=== PATIENT | male | born 1995 | race American Indian/Alaskan Native ===

== ENCOUNTER 2019-06-18 00:32 | Emergency (ER) | payer BC ==
[2019-06-18 00:55] VITALS: BP 138/70
[2019-06-18] MEDS ORDERED: XANAX PO ONE (02:33)
--- NOTE | 2019-06-18 03:03 | Emergency Department Report ---
ED General Adult HPI - General Chief complaint: Dyspnea/Respdistress Stated complaint: LAURA Time Seen by Provider: 06/18/19 01:59 Source: patient, family Mode of arrival: Ambulatory Limitations: No Limitations - History of Present Illness Initial comments: Patient is a 23-year-old -[place] male who presents for shortness of breath 2 months worse with stress follow presents with patient states history of anxiety patient denies SI or HI is no fever no chills no cough no nausea vomiting patient does state shortness of breath exacerbates his chest pain radiates to back presents history of same one year ago denies stressor. Onset/Timin -: month(s) Location: chest Radiation: back Severity scale (0 -10): 4 Quality: sharp Consistency: constant Improves with: none Worsens with: other (stress ) Associated Symptoms: chest pain, shortness of breath Treatments Prior to Arrival: none - Related Data Previous Rx's Medication Instructions Recorded Last Taken Type hydrOXYzine PAMOATE [Vistaril] 25 mg PO Q8H PRN #9 capsule 06/18/19 Unknown Rx ED Review of Systems ROS: Stated complaint: LAURA Other details as noted in HPI Constitutional: denies: chills, fever Eyes: denies: eye pain, eye discharge, vision change ENT: denies: ear pain, throat pain, congestion Respiratory: shortness of breath. denies: cough, wheezing Cardiovascular: chest pain. denies: palpitations, edema, syncope Endocrine: no symptoms reported Gastrointestinal: denies: abdominal pain, nausea, vomiting, diarrhea Genitourinary: denies: urgency, dysuria Musculoskeletal: back pain. denies: joint swelling, arthralgia Skin: denies: rash, lesions Neurological: denies: headache, weakness, numbness, paresthesias, confusion, abnormal gait, vertigo Psychiatric: denies: anxiety, depression Hematological/Lymphatic: denies: easy bleeding, easy bruising ED Past Medical Hx - Past Medical History Previous Medical History?: No Additional medical history: Pneumonia - Surgical History Past Surgical History?: Yes Hx Appendectomy: Yes - Social History Smoking Status: Never Smoker Substance Use Type: None - Medications Home Medications: Home Medications Medication Instructions Recorded Confirmed Last Taken Type hydrOXYzine PAMOATE [Vistaril] 25 mg PO Q8H PRN #9 capsule 06/18/19 Unknown Rx ED Physical Exam - General Limitations: No Limitations General appearance: alert, in no apparent distress - Head Head exam: Present: atraumatic, normocephalic - Eye Eye exam: Present: normal appearance, PERRL, EOMI Pupils: Present: normal accommodation - ENT ENT exam: Present: normal orophraynx, mucous membranes moist, TM's normal bilaterally, normal external ear exam - Neck Neck exam: Present: normal inspection, full ROM. Absent: tenderness, lymphadenopathy, thyromegaly - Respiratory Respiratory exam: Present: normal lung sounds bilaterally. Absent: respiratory distress, wheezes, stridor, chest wall tenderness, accessory muscle use, decreased breath sounds, prolonged expiratory - Cardiovascular Cardiovascular Exam: Present: regular rate, normal rhythm, normal heart sounds. Absent: systolic murmur, diastolic murmur, rubs, gallop - GI/Abdominal GI/Abdominal exam: Present: soft, normal bowel sounds. Absent: distended, tenderness, guarding, rebound, rigid, bruit, hernia - Rectal Rectal exam: Present: deferred - Extremities Exam Extremities exam: Present: normal inspection, full ROM. Absent: tenderness, normal capillary refill - Back Exam Back exam: Present: normal inspection, full ROM. Absent: tenderness, rash noted - Neurological Exam Neurological exam: Present: alert, oriented X3, CN II-XII intact, normal gait, reflexes normal - Psychiatric Psychiatric exam: Present: anxious. Absent: homicidal ideation, suicidal ideation - Skin Skin exam: Present: warm, dry, intact, normal color. Absent: rash ED Course Vital Signs 06/18/19 06/18/19 00:37 00:51 Temperature 98.6 F 98.6 F Pulse Rate 90 90 Respiratory 16 16 Rate Blood Pressure 160/91 138/70 O2 Sat by Pulse 100 99 Oximetry ED Medical Decision Making - Lab Data Result diagrams: 06/18/19 03:24 06/18/19 03:24 - Radiology Data Radiology results: report reviewed, image reviewed Ordering Physician: JAQUELINE GERARDO NP Date of Service: 06/18/19 Procedure(s): XR chest routine 2V Accession Number(s): [id number] cc: JAQUELINE GERARDO NP Fluoro Time In Minutes: CHEST 2 VIEWS INDICATION: sob. COMPARISON: None. FINDINGS: Support devices: None. Heart: Within normal limits. Lungs/Pleura: No acute air space or interstitial disease. No significant pleural effusion. IMPRESSION: No acute findings. Signer Name: Zachary Giordano MD Signed: 06/18/2019 3:20 AM Workstation Name: [id number] Transcribed By: ES Dictated By: Zachary Giordano MD Electronically Authenticated By: Zachary Giordano MD Signed Date/Time: 06/18/19319 DD/ 8 TD/TT: - Medical Decision Making cxr normal, labs normal pt is not SI or HI, symptoms improved plan follow up with [facility], Visteril prn, return to ed if symptoms worsen, pt verbalized agreement and understanding of discharge plan. Critical care attestation.: If time is entered above; I have spent that time in minutes in the direct care of this critically ill patient, excluding procedure time. ED Disposition Clinical Impression: Stress Disposition: DC-01 TO HOME OR SELFCARE Is pt being admited?: No Does the pt Need Aspirin: No Condition: Stable Instructions: Stress (ED) Prescriptions: hydrOXYzine PAMOATE [Vistaril] 25 mg PO Q8H PRN #9 capsule PRN Reason: Stress Ulcer Prophylaxis Referrals: [facility] [Outside] - 3-5 Days Forms: Work/School Release Form(ED) Time of Disposition: 04:27
--- NOTE | 2019-06-18 03:24 | XRay Report ---
CHEST 2 VIEWS INDICATION: sob. COMPARISON: None. FINDINGS: Support devices: None. Heart: Within normal limits. Lungs/Pleura: No acute air space or interstitial disease. No significant pleural effusion. IMPRESSION: No acute findings. Signer Name: Zachary Giordano MD Signed: 06/18/2019 3:20 AM Workstation Name: [id number]
[2019-06-18 03:38] LABS: Basophils % (Auto) 0.7 % (0.0-1.8); Eosinophils # (Auto) 0.1 K/mm3 (0.0-0.4); Eosinophils % (Auto) 1.8 % (0.0-4.3); Hematocrit 41.6 % (35.5-45.6); Hemoglobin 14.5 gm/dl (11.8-15.2); Lymphocytes # (Auto) 2.2 K/mm3 (1.2-5.4); Lymphocytes % (Auto) 36.6 % (13.4-35.0); Mean Corpuscular HGB Conc 35 % (32-34); Mean Corpuscular Volume 90 fl (84-94); Monocytes # (Auto) 0.4 K/mm3 (0.0-0.8); Monocytes % (Auto) 6.6 % (0.0-7.3); Platelet Count 273 K/mm3 (140-440); Red Blood Count 4.61 M/mm3 (3.65-5.03); Red Cell Distribution Width 12.7 % (13.2-15.2)
[2019-06-18 04:03] LABS: Alanine Aminotransferase 11 units/L (7-56); Albumin 4.4 g/dL (3.9-5); BUN/Creatinine Ratio 9; Blood Urea Nitrogen 7 mg/dL (9-20); Calcium 9.7 mg/dL (8.4-10.2); Hemolysis Index 8
[2019-06-18 04:19] LABS: Bilirubin,Urine NEG (Negative); Blood,Urine NEG (Negative); Color,Urine Straw (Yellow); Mucus,Urine FEW /HPF; Protein,Urine <15 mg/dL mg/dL (Negative); Urobilinogen,Urine < 2.0 mg/dL (<2.0)
[2019-06-18 04:20] LABS: RBC,Urine < 1.0 /HPF (0.0-6.0)
[2019-06-18 04:27] LABS: Amphetamine Screen,Urine PRESUMPTIVE NEGATIVE; Benzodiazepines Screen,Urine PRESUMPTIVE NEGATIVE; Cannabinoid Screen,Urine PRESUMPTIVE NEGATIVE; Cocaine Screen,Urine PRESUMPTIVE NEGATIVE; Methadone Screen,Urine PRESUMPTIVE NEGATIVE; Opiate Screen,Urine PRESUMPTIVE NEGATIVE
== END 2019-06-18 04:45 | disposition home or self-care (01) ==
LOC: ED 00:32
DX: F43.9 Reaction to severe stress, unspecified (principal); R07.9 Chest pain, unspecified; R06.02 Shortness of breath; Z98.890 Other specified postprocedural states; Z79.899 Other long term (current) drug therapy
CPT/HCPCS: 36415; 71046; 80053; 80307; 81001; 84484; 85025; 85379; 99284